=== PATIENT | female | born 1985 | race Caucasian/White ===

== ENCOUNTER 2016-07-03 15:39 | Emergency (ER) | payer BC ==
[~2016-07-03] VITALS: Wt 63.5 kg
[~2016-07-03 15:39] MED LIST: ACET500C5 PO; CETI10CA PO; CYCL-319 PO; D-ME473S2 PO; HYDR-3498 PO; IBUP-1542 PO; NAPR-260 PO; PREN1TAB49 PO
[2016-07-03] MEDS ORDERED: KETOROLAC 30 MG INJ IM STA (16:04)
[2016-07-03] MEDS ORDERED: IBUP-1542 PO (16:13)
[2016-07-03] MEDS ORDERED: AMO500 PO (16:13)
--- NOTE | 2016-07-04 19:22 | ERD ---
ER Documentation Chief Complaint Date/Time DATE: 07/04/16 TIME: 19:15 Chief Complaint R EAR PAIN FOR 3 DAYS. MILD COUGH CONGESTION AND SORE THROAT HPI This is a 30-year-old female presenting to emergency department for cough, nasal congestion, sore throat and right earache 3 days. Patient describes cough is dry nonproductive. No chest pain, shortness of breath or difficulty breathing. No wheezing. Patient has sore throat. No difficulty swallowing or drooling. No muffled voice. Patient has right earache. No otorrhea or ear swelling. No muffled hearing. No vomiting or diarrhea. No abdominal pain. No fevers or chills. ROS All systems reviewed and are negative except as per history of present illness. Medications Home Meds Active Scripts Ibuprofen* (Motrin*) 600 Mg Tab, 600 MG PO Q6, #15 TAB Prov:GABRIELA PRECIADO NP 07/03/16 Amoxicillin* (Amoxicillin*) 500 Mg Cap, 500 MG PO BID for 10 Days, CAP Prov:GABRIELA PRECIADO NP 07/03/16 Cetirizine Hcl* (Zyrtec*) 10 Mg Capsule, 10 MG PO DAILY, #14 TAB.CHEW Prov:NAMITA IRBY PA-C 03/21/16 Naproxen* (Naprosyn*) 500 Mg Tablet, 500 MG PO BID Y for PAIN AND/OR INFLAMMATION, #30 TAB Prov:NAMITA IRBY PA-C 03/21/16 Acetaminophen* (Tylophen*) 500 Mg Capsule, 1 CAP PO Q6H Y for PAIN AND OR ELEVATED TEMP, #30 CAP Prov:NAMITA IRBY PA-C 03/21/16 Ibuprofen* (Motrin*) 600 Mg Tab, 600 MG PO Q6H Y for PAIN AND OR ELEVATED TEMP, #30 TAB Prov:RIANNA WILKINS NP 12/02/15 Cyclobenzaprine Hcl* (Cyclobenzaprine Hcl*) 10 Mg Tablet, 10 MG PO TID, #15 TAB Prov:RIANNA WILKINS NP 12/02/15 Hydrocodone Bit-Acetaminophen* ([place]*) 5-325 Mg Tab, 1 TAB PO Q6 Y for PAIN, # 20 TAB Prov:RIANNA WILKINS NP 12/02/15 Reported Medications Dextromethorphan Hb-Promethazine Hcl* (Promethazine DM* Syrup) 473 Ml Syrup, 473 ML PO Q4, #10 06/17/11 Vits W-Ca,Fe,Fa(<1MG) () 1 Tab Tablet, PO DAILY 06/17/11 Allergies Allergies: Coded Allergies: No Known Allergy (Verified , 06/17/11) PMhx/Soc Medical and Surgical Hx: pt denies Medical Hx, pt denies Surgical Hx History of Surgery: Yes ( section) Anesthesia Reaction: No Hx Neurological Disorder: No Hx Respiratory Disorders: No Hx Cardiac Disorders: No Hx Psychiatric Problems: No Hx Miscellaneous Medical Probl: No Hx Alcohol Use: No Hx Substance Use: No Hx Tobacco Use: No Smoking Status: Never smoker Physical Exam Vitals Vital Signs Date Time Temp Pulse Resp B/P Pulse Ox O2 Delivery O2 Flow Rate FiO2 07/03/16 15:41 98.9 91 20 137/84 100 Physical Exam Const: No acute distress, alert Head: Atraumatic Eyes: Normal Conjunctiva ENT: Normal External Ears, Nose and Mouth. Erythema and exudate to posterior pharynx. Non-kissing tonsils. TMs normal bilaterally. No abscess Neck: Full range of motion..~ No meningismus. Resp: Clear to auscultation bilaterally. No wheezing, rhonchi or crackles. Cardio: Regular rate and rhythm, no murmurs Abd: Soft, non tender, non distended. Normal bowel sounds Skin: No petechiae or rashes Back: No midline or flank tenderness Ext: No cyanosis, or edema Neur: Awake and alert Psych: Normal Mood and Affect Results 24 hrs Current Medications Medications (Trade) Dose Ordered Sig/Amalia Route PRN Reason Start Time Stop Time Status Last Admin Dose Admin Ketorolac Tromethamine (Toradol) 30 mg ONCE STAT IM 07/03/16 16:04 07/03/16 16:05 DC 07/03/16 16:25 Procedures/MDM ED COURSE: The patient was stable throughout ED course. I kept the patient and/or family informed of laboratory and diagnostic imaging results throughout the ED course. Toradol given Laboratory Urine negative MDM: 30-year-old female presents emergency department for cough, nasal congestion, sore throat and right earache 3 days. ENT exam reveals erythematous and exudative posterior pharynx. No masses or lesions. TMs normal bilaterally. No signs or symptoms of respiratory distress. No difficulty swallowing or drooling. No fevers or chills. Vital signs are stable. Oxygen saturation 100% on room air. Patient appears calm and comfortable throughout ED visit. Patient requesting pain medication for sore throat. Toradol given while in ED. Low suspicion for epiglottitis or peritonsillar abscess. Patient likely has strep pharyngitis. Patient is appropriate for outpatient management will be given prescription for amoxicillin and ibuprofen. Instructed patient to follow-up with primary care provider in the next 2-3 days for reassessment and additional management. Return to ED for any high fever, chest pain, difficulty breathing, shortness breath, wheezing, vomiting, diarrhea, abdominal pain or any new or worsening symptoms. Patient verbalizes understanding. All questions answered at discharge. Departure Diagnosis: Primary Impression: Pharyngitis Pharyngitis/tonsillitis etiology: streptococcus Qualified Code: J02.0 - Pharyngitis due to Streptococcus species Condition: Stable Patient Instructions: Pharyngitis, Strep (Presumed) Additional Instructions: Call your primary care doctor TOMORROW for an appointment during the next 2-3 days.See the doctor sooner or return here if your condition worsens before your appointment time. Return to ED for any high fever, chest pain, difficulty breathing, shortness breath, wheezing, vomiting, diarrhea, abdominal pain or any new or worsening symptoms. GABRIELA PRECIADO NP Jul 04, 2016 19:22
== END 2016-07-03 16:43 | disposition home or self-care (01) ==
LOC: FTE 15:39
DX: J02.0 Streptococcal pharyngitis (principal)
CPT/HCPCS: 96372